=== PATIENT | female | born 1975 | race Two or more races ===

== ENCOUNTER 2020-10-01 10:57 | Outpatient (CLI) | payer OTHER | END 2020-10-01 11:13 | disposition home or self-care (01) | LOC: MAMO-SONO 10:57 | PROVIDERS: ATTEND Specialist | DX: N60.11 Diffuse cystic mastopathy of right breast (principal); N60.12 Diffuse cystic mastopathy of left breast ==

== ENCOUNTER 2020-12-16 10:54 | Outpatient (CLI) | payer OTHER | END 2020-12-16 11:35 | disposition home or self-care (01) | LOC: LAB 10:54 | PROVIDERS: ATTEND Obstetrics & Gynecology Gynecology | DX: I10 Essential (primary) hypertension (principal); D27.0 Benign neoplasm of right ovary; D27.1 Benign neoplasm of left ovary; N39.0 Urinary tract infection, site not specified; D64.89 Other specified anemias ==

== ENCOUNTER 2021-01-20 12:58 | Outpatient (CLI) | payer OTHER | END 2021-01-20 13:07 | disposition home or self-care (01) | LOC: SONOGRAMA 12:58 → MAMO-SONO 01-21 13:15 | PROVIDERS: ATTEND Obstetrics & Gynecology Gynecology | DX: R10.2 Pelvic and perineal pain (principal) ==

== ENCOUNTER 2021-07-03 10:20 | Outpatient (CLI) | payer OTHER | END 2021-07-03 10:44 | disposition home or self-care (01) | LOC: SONOGRAMA 10:20 | PROVIDERS: ATTEND Obstetrics & Gynecology Gynecology | DX: D27.0 Benign neoplasm of right ovary (principal) ==

== ENCOUNTER 2022-02-06 08:45 | Outpatient (CLI) | payer OTHER | END 2022-02-06 08:49 | disposition home or self-care (01) | LOC: MRI 08:45 | DX: M25.562 Pain in left knee (principal); M25.462 Effusion, left knee | CPT/HCPCS: 73718 ==

== ENCOUNTER 2022-08-06 11:20 | Outpatient (CLI) | payer OTHER | END 2022-08-06 11:28 | disposition home or self-care (01) | LOC: RAD 11:20 | DX: M17.0 Bilateral primary osteoarthritis of knee (principal) ==

== ENCOUNTER 2022-10-21 09:43 | Emergency (ER) | payer OTHER ==
[~2022-10-21] VITALS: Ht 157.5 cm; Wt 88.5 kg
[2022-10-21] MEDS ORDERED: VYVANSE50 MG PO (10:10)
[2022-10-21] MEDS ORDERED: ZOLPIDEM TART12.5 MG PO (10:11)
[2022-10-21] MEDS ORDERED: ESCITALOPRAM OX10 MG PO (10:11)
[2022-10-21] MEDS ORDERED: DIVALPROEX SOD500 MG PO (10:11)
[2022-10-21] MEDS ORDERED: CLONAZEPAM1 MG PO (10:11)
== END 2022-10-21 15:39 | disposition home or self-care (01) ==
LOC: ER 09:43
DX: K57.32 Diverticulitis of large intestine without perforation or abscess without bleeding (principal)

== ENCOUNTER 2023-03-17 09:44 | Emergency (ER) | payer OTHER ==
[~2023-03-17] VITALS: Ht 160 cm; Wt 88.5 kg
[~2023-03-17 09:44] MED LIST: ADERAL PO; CLONAZEPAM1 M1 PO; CLONAZEPAM1 MG PO; DIVALPROEX SOD500 MG PO; ESCITALOPRAM OX10 MG PO; IBU800 MG PO; PERCOCET 5-3251 EACH PO; VYVANSE50 MG PO; ZOLPIDEM TART12.5 MG PO
[2023-03-17] MEDS ORDERED: AMBIEN CR12.5 MG PO (09:58)
[2023-03-17 11:45] LABS: HEMATOCRIT 49.6 % (36.0-45.00); MEAN CELL VOLUME 87.9 fL (80.00-100.00); MEAN CORPUSCULAR HEMOGLOBIN 30.2 pg (27.00-32.0); MEAN CORPUSCULAR HGB CONC 34.4 g/dl (32.0-36.0); PLATELET COUNT 252 K/uL (150-450); RED BLOOD COUNT 5.64 M/uL (4.00-6.00); RED CELL DISTRIBUTION WIDTH 15.1 % (11.5-14.5)
[2023-03-17 11:53] LABS: CREATININE SERUM 1.13 mg/dL (0.55-1.02); GFR 52.07; POTASSIUM 4.03 mEq/L (3.5-5.1)
[2023-03-17 12:55] LABS: PH,URINE 6.5 (5.0-8.0); URINE APPEARANCE Clear; URINE BACTERIA 365.3 uL (0.0-1933); URINE BILIRRUBIN Negative (NEGATIVE); URINE BLOOD Small; URINE COLOR Yellow; URINE EPITHELIAL CELLS 70.1 uL (0.0-38.8); URINE GLUCOSE Negative (NEGATIVE); URINE LEUKOCYTE Negative; URINE NITRATE Negative; URINE PROTEIN Negative (NEGATIVE); URINE UROBILINOGEN 0.2 E.U./dl; URINE WBC 9.5 uL (0.0-23.2)
== END 2023-03-17 17:57 | disposition home or self-care (01) ==
LOC: ER 09:44
PROVIDERS: General Practice
DX: K52.89 Other specified noninfective gastroenteritis and colitis (principal)

== ENCOUNTER 2024-12-26 09:17 | Outpatient (CLI) | payer OTHER ==
[~2024-12-26 09:17] MED LIST changes: +AMBIEN CR12.5 MG PO
== END 2024-12-26 09:34 | disposition home or self-care (01) ==
LOC: SONOGRAMA 09:17
PROVIDERS: ATTEND Internal Medicine Gastroenterology
DX: R10.9 Unspecified abdominal pain (principal)